=== PATIENT | male | born 1985 | race Caucasian/White ===

== ENCOUNTER 2019-10-23 12:38 | Observation (INO) ==
[2019-10-23 13:29] LABS: Bilirubin,Urine Negative (Negative); Blood,Urine Negative (Negative); Clarity,Urine Clear (Clear); Color,Urine Yellow (Yellow); Glucose,Urine (UA) Normal (Normal); Ketones,Urine Negative (Negative); Leukocyte Esterase,Urine Negative (Negative); Nitrite,Urine Negative (Negative); Protein,Urine Negative (Neg-Trace); Urobilinogen,Urine Normal (Normal)
[2019-10-23 13:30] LABS: Amphetamine Screen,Urine Positive ng/mL (Cutoff=1000); Barbiturate Screen,Urine Negative ng/mL (Cutoff=200); Benzodiazepines Screen,Urine Negative ng/mL (Cutoff=200); Cannabinoid Screen,Urine Negative ng/mL (Cutoff = 50); Cocaine Screen,Urine Negative ng/mL (Cutoff= 300); Opiate Screen,Urine Negative ng/mL (Cutoff=300); Phencyclidine Screen,Urine Negative ng/mL (Cutoff=25)
[2019-10-23 13:48] LABS: Basophils # 0.1 K/mcL (0.0-0.2); Basophils % 0.8 %; Eosinophils # 0.2 K/mcL (0.0-0.6); Eosinophils % 3.5 %; Hematocrit 47.1 % (37.5-50.1); Hemoglobin 15.6 g/dL (12.9-16.9); Immature Granulocytes % 0.3 % (0-4); Lymphocytes # 1.6 K/mcL (0.6-4.6); Lymphocytes % 25.8 %; Mean Corpuscular HGB Conc 33.1 g/dL (31.6-35.5); Mean Corpuscular Hemoglobin 27.6 pg (28.0-33.3); Mean Corpuscular Volume 83.2 fL (83.0-100.0); Mean Platelet Volume 10.3 fL (9.4-12.4); Monocytes # 0.5 K/mcL (0.0-1.3); Monocytes % 7.6 %; Neutrophils # 3.8 K/mcL (1.6-8.9); Platelet Count 262 K/mcL (140-400); Red Blood Count 5.66 M/mcL (4.19-5.50); Red Cell Distribution Width 11.9 % (11.5-14.5); White Blood Count 6.1 K/mcL (4.3-11.1)
[2019-10-23 14:26] LABS: Acetaminophen < 10 mcg/mL (10-20); BUN/Creatinine Ratio 19 (6-26); Blood Urea Nitrogen 15 mg/dL (6-20); Calcium 9.2 mg/dL (8.6-10.3); Carbon Dioxide 31 mEq/L (23-29); Chloride 104 mEq/L (98-107); Ethanol < 10 mg/dL (Less than 10); Glucose 73 mg/dL (70-105); Osmolality,Calculated 285 (280-300); Potassium 3.9 mEq/L (3.5-5.1); Salicylate < 2.5 mg/dL (15.0-30.0); Sodium 138 mEq/L (136-145); eGFR For African Americans > 60 (> 60); eGFR For Non-African Americans > 60 (> 60)
[2019-10-24] MEDS ORDERED: *HR* LORazepam 1 MG TABLET PO ONE (09:24)
[2019-10-24] MEDS ORDERED: Nicotine 21 MG PATCH.TD24 TD ONE (09:39)
[2019-10-24] MEDS ORDERED: *HR* LORazepam 1 MG TABLET PO PRN (13:43)
[2019-10-24] MEDS ORDERED: Haloperidol Lactate 5 MG/ML VIAL IM PRN (13:43)
[2019-10-24] MEDS ORDERED: MOM Conc 10 ML UD.LIQ PO PRN (13:43)
[2019-10-24] MEDS ORDERED: *HR* LORazepam 2 MG/ML VIAL IM PRN (13:43)
[2019-10-24] MEDS ORDERED: Mag Hydrox/Al Hydrox/Simeth 30 ML UDC PO PRN (13:43)
[2019-10-24] MEDS: traZODone 50 MG TABLET PO PRN (20:27)
[2019-10-24] MEDS: hydrOXYzine pamoate 25 MG CAPSULE PO PRN (20:27)
[2019-10-24] MEDS: Amoxicillin 500 MG CAPSULE PO SCH (20:27)
[2019-10-24] MEDS: Acetaminophen 325 MG TABLET PO PRN (20:27)
[2019-10-25] MEDS ORDERED: Nicotine 21 MG PATCH.TD24 TD ONE (09:39)
[2019-10-25] MEDS: Amoxicillin 500 MG CAPSULE PO SCH ×3 (09:48→20:28)
[2019-10-25] MEDS: Nicotine 21 MG PATCH.TD24 TD SCH (09:49)
[2019-10-25] MEDS: Acetaminophen 325 MG TABLET PO PRN (12:32)
[2019-10-25] MEDS: hydrOXYzine pamoate 25 MG CAPSULE PO PRN (20:28)
[2019-10-25] MEDS: traZODone 50 MG TABLET PO PRN ×2 (20:28→22:25)
[2019-10-26 09:42] VITALS: BP 126/86
[2019-10-26] MEDS: Amoxicillin 500 MG CAPSULE PO SCH (10:45)
[2019-10-26] MEDS: Nicotine 21 MG PATCH.TD24 TD SCH (10:46)
== END 2019-10-26 13:10 | disposition home or self-care (01) ==
LOC: EMEROOARM 12:38 → 1ANU 12:38
PROVIDERS: ADMIT Psychiatry & Neurology Psychiatry; ATTEND Psychiatry & Neurology Psychiatry